=== PATIENT | female | born 1985 | race African-American/Black ===

== ENCOUNTER 2017-10-31 06:52 | Day surgery (SDC) | payer MEDICAID, OTHER ==
[~2017-10-31] VITALS: Ht 162.6 cm; Wt 64.5 kg
[2017-10-31 08:03] LABS: BASOPHILS % 0.8 % (0.0-2.0); EOSINOPHILS % 0.8 % (0.0-5.0); HEMATOCRIT. 35.5 % (36.0-48.0); HEMOGLOBIN. 12.6 g/dL (12.0-16.0); LYMPHOCYTES % 32.5 % (20.0-50.0); MEAN CORPUSCULAR VOLUME 87.8 fL (81.0-99.0); MEAN PLATELET VOLUME 9.2 fl (7.4-10.4); MONOCYTES % 6.1 % (2.0-8.0); NEUTROPHILS % 59.8 % (40.0-76.0); PLATELET 177 x1000/uL (130-400); RED BLOOD CELL COUNT 4.05 mill/uL (4.2-5.4); RED CELL DISTRIBUTION WIDTH 12.9 % (11.6-14.6)
[2017-10-31] MEDS ORDERED: FENTANYL CITRATE/PF 50MCG/ML 2ML VIAL ONE (08:03)
[2017-10-31] MEDS ORDERED: PROPOFOL 200MG/20ML VIAL IV ONE (08:03)
[2017-10-31] MEDS ORDERED: ROCURONIUM BROMIDE 10MG/ML VIAL 5ML IV ONE (08:03)
[2017-10-31] MEDS ORDERED: MIDAZOLAM HCL 2 MG/2 ML VIAL ONE (08:03)
[2017-10-31] MEDS ORDERED: LIDOCAINE HCL/PF 1% 10 MG/ML 5ML VIAL ONE (08:04)
[2017-10-31] MEDS ORDERED: GLYCOPYRROLATE 0.2 MG/ML 2ML VIAL ONE (08:04)
[2017-10-31] MEDS ORDERED: ONDANSETRON HCL 4MG/2ML VIAL ONE (08:04)
[2017-10-31] MEDS ORDERED: SUCCINYLCHOLINE CHLORIDE 200MG/10ML VIAL IV ONE (08:04)
[2017-10-31 08:06] VITALS: BP 108/77
[2017-10-31 08:10] LABS: INR 1.1; PROTHROMBIN TIME 11.1 sec (9.4-11.6)
[2017-10-31 08:14] LABS: CHLORIDE 107 mEq/L (98-107)
[2017-10-31] MEDS ORDERED: METOCLOPRAMIDE HCL 10MG/2ML VIAL ONE (08:16)
[2017-10-31] MEDS ORDERED: DEXT 5%/LACTATED RINGERS 1,000 ML IV SCH (08:30)
[2017-10-31 08:34] LABS: B-HCG QUANTITATIVE 18119 mIU/mL (<3)
[2017-10-31] MEDS ORDERED: ONDANSETRON HCL 4MG/2ML VIAL IV PRN (10:00)
[2017-10-31] MEDS ORDERED: KETOROLAC 30MG/ML VIAL IV NR (10:00)
[2017-10-31] MEDS ORDERED: ACETAMINOPHEN 325MG TABLET PO PRN (10:00)
[2017-10-31] MEDS ORDERED: CEFAZOLIN SODIUM 1000MG/VIAL ONE (10:01)
[2017-10-31] MEDS ORDERED: DEXT 5%/0.45% NACL KCL 20MEQ/L 1,000 ML IV SCH (12:00)
== END 2017-10-31 12:15 | disposition home or self-care (01) ==
LOC: ER 07:50 → OR 07:55 → 6EST 07:55 → UNDOADMIN 07:55 → ENRESERV 09:11 → 6EST 11:29 → ORIP 11:29 → OR 12:15
PROVIDERS: ATTEND Specialist
DX: O03.4 Incomplete spontaneous abortion without complication (principal); Z98.890 Other specified postprocedural states; Z83.2 Family history of diseases of the blood and blood-forming organs and certain disorders involving the immune mechanism
CPT/HCPCS: 36415; 59812; 80053; 83690; 84702; 85025; 85610; 86850; 86900; 86901; 88305; 99285; J0330; J0690; J2250; J2405; J2765; J3010; J3490; J2704